=== PATIENT | female | born 1975 ===

== ENCOUNTER 2023-02-01 09:45 | Inpatient (IN) | payer OTHER ==
[~2023-02-01] VITALS: Ht 160 cm; Wt 78.0 kg
[2023-02-01] MEDS ORDERED: LOSARTAN POTASS50 MG PO (11:31)
[2023-02-04] MEDS ORDERED: BUPROPION XL300 MG (11:24)
[2023-02-04] MEDS ORDERED: BUSPIRONE HCL10 MG (11:24)
[2023-02-07] MEDS ORDERED: LEVSIN/SL0.125 MG SL (10:20)
[2023-02-07] MEDS ORDERED: INTESTINEX680 M1 PO (10:21)
[2023-02-07] MEDS ORDERED: GAS RELIEF125 MG PO (10:22)
== END 2023-02-07 11:51 | disposition home or self-care (01) | DRG 334 ==
LOC: ADM 10:00 → EDSTATUS 10:00 → O/R 02-04 09:24 → SURH 02-04 09:24 → SURG 02-04 10:00 → SURH 02-04 17:11
PROVIDERS: ADMIT Surgery; ATTEND Surgery
PROC: 0DJD8ZZ Inspection of Lower Intestinal Tract, Via Natural or Artificial Opening Endoscopic (ICD-10-PCS; 2023-02-04)
PROC: 0DTP4ZZ Resection of Rectum, Percutaneous Endoscopic Approach (ICD-10-PCS; principal; 2023-02-04 16:30)
DX: K57.32 Diverticulitis of large intestine without perforation or abscess without bleeding (principal); Z20.822 Contact with and (suspected) exposure to COVID-19

== ENCOUNTER 2023-02-09 22:07 | Inpatient (IN) | payer OTHER ==
[~2023-02-09] VITALS: Ht 160 cm; Wt 78.0 kg
[~2023-02-09 22:07] MED LIST: BUPROPION XL300 MG; BUSPIRONE HCL10 MG; GAS RELIEF125 MG PO; INTESTINEX680 M1 PO; LEVSIN/SL0.125 MG SL; LOSARTAN POTASS50 MG PO
--- NOTE | 2023-02-09 22:25 | NUR ---
SE RECIBE PTE ALERTA Y ORIENTADA X3 LA CUAL REFIERE VENIR POR DOLOR DE ARLEN Y NAUSEAS Y MEMO PRESION. SE MIDEN S/V Y SE KIM BP MANUAL 160/80. SE ORIENTA A PTE SOBRE PRESION MANUAL. PTE SE COLOCA EN KIRSTY DE ESPERA.
--- NOTE | 2023-02-10 07:32 | NUR ---
SE RECIEB PTE LAERTA Y EN CRISTO CON BARANDAS ELEVADAS POR MCDOWELL SEGURIDAD. PENDIENTE A CONSULTA CON .
[2023-02-10] MEDS ORDERED: BUSPIRONE HCL10 MG (09:35)
[2023-02-10] MEDS ORDERED: BUPROPION XL300 MG (09:35)
== END 2023-02-12 12:56 | disposition home or self-care (01) | DRG 313 ==
LOC: ER 22:07 → SEC-K 02-10 09:29 → SURH 02-11 14:27 → SURG 02-11 19:48 → SURH 02-11 19:49
PROVIDERS: General Practice; Internal Medicine; ADMIT Surgery; ATTEND Surgery
PROC: BW24YZZ Computerized Tomography (CT Scan) of Chest and Abdomen using Other Contrast (ICD-10-PCS; principal; 2023-02-10)
PROC: B24BZZZ Ultrasonography of Heart with Aorta (ICD-10-PCS; 2023-02-10)
DX: R07.89 Other chest pain (principal); R00.2 Palpitations; I10 Essential (primary) hypertension; Z90.49 Acquired absence of other specified parts of digestive tract